=== PATIENT | female | born 1950 | race Caucasian/White ===

== ENCOUNTER 2016-09-01 23:39 | Inpatient (IN) | payer MEDICARE, OTHER ==
[2016-09-01] MEDS ORDERED: LACTATED RINGERS 1,000 ML ONE (23:56)
[2016-09-02 00:15] LABS: ABSOLUTE NEUTROPHIL COUNT 7.9 K/mm3 (1.8-7.7); BASO % 0.4 % (0.2-1.0); EOS # 0.2 (0.0-0.5); EOS % 1.5 % (0.9-2.9); HEMATOCRIT 47.1 % (37.0-47.0); IMM NEUT% 0.3 % (0-1); LYMPH % 18.5 % (15-45); MEAN CELL VOLUME 90.4 fl (81.0-99.0); MEAN CORPUSCULAR HEMOGLOBIN 28.8 pg (27.0-31.0); MEAN CORPUSCULAR HGB CONC 31.8 g/dl (33.0-37.0); MEAN PLATELET VOLUME 9.3 fl (7.4-10.4); MONO # 0.5 (0.0-0.8); MONO % 4.8 % (4-12); NEUT % 74.5 % (43-75); PLATELET COUNT 299 K/mm3 (130-400); RED CELL DISTRIBUTION WIDTH 14.2 % (11.5-14.5)
[2016-09-02] MEDS ORDERED: ONDANSETRON 4 MG/2ML 2 ML VIAL ONE ×2 (00:18→02:45)
[2016-09-02] MEDS ORDERED: FENTANYL 100 MCG/2 ML VIAL ONE (00:18)
[2016-09-02 00:29] LABS: ALB/GLOB RATIO 1.5 (>1.0); ALBUMIN 4.3 gm/dL (3.5-5.7); CALCIUM 10.2 mg/dL (8.6-10.3)
[2016-09-02 01:59] LABS: URINE BILIRUBIN NEGATIVE (NEGATIVE); URINE BLOOD 1+ (NEGATIVE); URINE GLUCOSE (UA) NEGATIVE (NEGATIVE); URINE LEUKOCYTE ESTERASE NEGATIVE (NEGATIVE); URINE NITRITE NEGATIVE (NEGATIVE); URINE PROTEIN 2+ (NEGATIVE); URINE UROBILINOGEN NORMAL (0-1 mg/dl)
[2016-09-02 02:01] LABS: URINE APPEARANCE CLEAR; URINE COLOR YELLOW
[2016-09-02 02:07] LABS: URINE BACTERIA 0
[2016-09-02] MEDS ORDERED: BLISTEX LIPSTICK 1 EACH TP PRN (02:55)
[2016-09-02] MEDS ORDERED: BISACODYL 5 MG TABLET.EC PO PRN (02:55)
[2016-09-02] MEDS ORDERED: PROMETHAZINE HCL 25 MG in SODIUM CHLORIDE 0.9% 50 ML IV PRN (02:55)
[2016-09-02] MEDS ORDERED: PROCHLORPERAZINE 5 MG/ML 2 ML VIAL IV PRN (02:55)
[2016-09-02] MEDS ORDERED: MENTHOL/CETYLPYRD 1 EACH LOZENGE PO PRN (02:55)
[2016-09-02] MEDS ORDERED: MAGNESIUM HYDROXIDE 30 ML UDCUP PO PRN (02:55)
[2016-09-02] MEDS ORDERED: HYDROMORPHONE HCL 2 MG/ML SYRINGE IV PRN (02:55)
[2016-09-02] MEDS ORDERED: ACETAMINOPHEN 650 MG SUP PR PRN (02:55)
[2016-09-02] MEDS ORDERED: BISACODYL 10 MG SUP PR PRN (02:55)
[2016-09-02] MEDS ORDERED: SODIUM CHLORIDE 0.9% 100 ML IV PRN (02:55)
[2016-09-02 02:57] VITALS: BMI 39.4
[2016-09-02] MEDS ORDERED: HYDROMORPHONE HCL 1 MG/ML SYRINGE IV PRN (03:07)
[2016-09-02] MEDS ORDERED: HYDROMORPHONE HCL 0.5 MG/0.5 ML SYRINGE IV PRN (03:09)
[2016-09-02] MEDS ORDERED: PUMP TUBING ONE (03:29)
[2016-09-02] MEDS: D5 1/2NS with 20 mEq KCL 1,000 ML IV SCH ×3 (03:33→20:16)
--- NOTE | 2016-09-02 08:19 | CT ---
Exam Type: ABD/PELVIS W/O CON Date and Time: 09/02/2016 12:54 AM Clinical information: Nausea and vomiting with abdominal pain. History of small bowel obstruction and liver cancer. Comparison: None Procedure: Imaging device: [employer] Aquilion [address] scanner 1 mm axial images were obtained through the abdomen and pelvis. Stacked reconstructed 3, 4 and 5 mm images were photographed in the axial coronal and sagittal planes. No oral contrast was utilized for this examination. Exam: Without intravenous contrast. FINDINGS: Lung bases: Linear bibasilar atelectasis or scarring is evident. Liver: There are multiple low-attenuation foci observed. Within the superior right lobe, there are smaller low-attenuation foci, one of which demonstrates Hounsfield attenuation value of 6 Hounsfield units. This may reflect small hepatic cysts. However, there are also heterogeneous mass is seen within both the left and right hepatic lobes. The left lobe hepatic mass measures approximately 5.1 x 6.5 cm, the right hepatic mass seen on image 34 measures 4.8 x 3.2 cm. This likely reflects the patient's known hepatic carcinoma. Spleen: The spleen is homogeneous and does not appear to be enlarged. Gallbladder: Surgically absent. Pancreas: Normal without enlargement or evidence of adjacent inflammatory changes. Adrenal glands: Normal without enlargement or evidence of adjacent inflammatory changes. Abdominal aorta: The aorta is of normal caliber and appears to be without significant atherosclerotic disease. Kidneys: There is a low-attenuation focus involving the superior portion of the right kidney which may reflect a renal cyst. No evidence of hydronephrosis is seen. Bowel structures: Suture material is evident involving the proximal colon suggesting partial resection. A few mildly prominent centrally located small bowel loops are seen adjacent to a prior anterior abdominal wall ventral hernia repair with a few small bowel loops extending into the region of the umbilicus. The distal small bowel loops and visualized colon are not dilated. No free fluid or free air is visualized. Appendix: Appears surgically absent. Bladder: The bladder is of normal contour. No wall thickening or significant distention is observed. Hernia: No abdominal wall or inguinal hernia is visualized on this examination. Adenopathy: There is a soft tissue density to the left aspect of the aorta on image 53 measuring 2 cm in size. A soft tissue density is also seen within the subcutaneous tissues of the left posterior flank on image 56. This may reflect an injection granuloma. Osseous structures: A thoracolumbar scoliotic deformity is suggested with associated degenerative changes. Multiple subtle mixed lytic and blastic foci are identified raising concern for osseous metastatic disease. Pelvic structures: There appears to be anterior uterine calcifications likely reflecting a calcified uterine fibroid. IMPRESSION: 1. Large subtle masses within the left and right hepatic lobes, likely reflecting the patient's known hepatic neoplastic process, either primary or metastatic. Other additional hepatic low-attenuation foci evident appearance possibly reflecting hepatic cysts as well. 2. Suggested partial resection of the proximal colon with likely surgical absence of the appendix. No current findings of obstruction are observed. 3. Mildly prominent small bowel loops within the central abdomen adjacent to a prior anterior abdominal wall ventral hernia repair with a few of the small bowel loops extending into the region of the umbilicus. A partial small bowel obstruction cannot be excluded. No free fluid or free air is visualized. 4. A 2 cm suspected enlarged lymph node within a left periaortic location. 5. A 2.1 cm soft tissue density within the subcutaneous tissues of the left flank which may reflect an injection granuloma 6. A probable superior pole right renal cyst. 7. Prior cholecystectomy. 8. Scattered osseous mixed lytic and blastic foci involving the thoracic and lumbar spine which may reflect osseous metastatic disease. Consideration may be given to a nuclear medicine bone scan for further evaluation. 9. Probable calcified uterine fibroids. 10. A thoracolumbar scoliotic deformity with associated degenerative changes. The findings were called to the emergency room at 0201 hours, 09/02/2016, by [facility] radiology.
[2016-09-02] MEDS ORDERED: WATER FOR IRRIG,STERILE 500 ML BOT ONE (08:41)
[2016-09-02] MEDS: PANTOPRAZOLE SODIUM 40 MG VIAL IV SCH (08:50)
--- NOTE | 2016-09-02 08:53 | RAD ---
ABDOMEN ONE VIEW HISTORY: Follow-up small bowel obstruction. Check NG tube placement. Upright abdominal radiograph acquired. COMPARISON: CT examination from 09/02/2016. FINDINGS: BOWEL GAS PATTERN: No small bowel dilatation noted. FREE AIR: None identified. POSTPROCEDURAL CHANGE: Status post cholecystectomy. Right hemipelvic surgical clips again seen. Gastric tubing identified tip projecting just above the expected region of the gastroesophageal junction, advancement recommended. ABDOMINOPELVIC CALCIFICATIONS: Coarse calcifications of the pelvis compatible with leiomyoma and phlebolith formation. OSSEOUS STRUCTURES: Sigmoid thoracolumbar scoliosis. Lower lumbar facet degeneration. IMPRESSION: 1. Nonobstructive bowel gas pattern. No free air. 2. Gastric tubing terminates above the diaphragm, advancement recommended. 3. Status post cholecystectomy. 4. Thoracolumbar scoliosis. Findings discussed with Dr. Jessica of the hospitalist clinical service on 09/02/2016 at 0849 hours.
[2016-09-02] MEDS: DOCUSATE SODIUM 100 MG CAPSULE PO SCH ×2 (09:16→23:48)
[2016-09-02] MEDS: ONDANSETRON 4 MG/2ML 2 ML VIAL IV PRN ×2 (10:33→17:56)
[2016-09-02] MEDS ORDERED: PROMETHAZINE HCL 6.25 MG in SODIUM CHLORIDE 0.9% 50 ML IV PRN (11:16)
--- NOTE | 2016-09-02 12:18 | HP ---
Sydni Lagunas [id number] DATE OF ADMISSION: 09/02/2016 CHIEF COMPLAINT: Nausea and vomiting with abdominal pain. 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 Emergency Department with complaints of generalized abdominal pain beginning yesterday afternoon after lunch. She reports the pain radiated to the back and her symptoms of nausea and discomfort progressed such that she sought emergency medical attention and was evaluated in our emergency department just before midnight. Workup in the emergency department showed CT evidence of early or partial small bowel obstruction. A nasogastric tube was placed in the emergency department. She had improvement in her abdominal pain overnight. She reports two episodes of vomiting with emesis last night. Her last bowel movement was yesterday morning prior to the onset of the discomfort. Her symptoms feel similar to a prior bowel obstruction which resolved conservatively. REVIEW OF SYSTEMS: Negative for any documented fever or upper respiratory infection symptoms. No cough, dyspnea, wheezing, chest pain, shortness of breath, or palpitations. She denies any problems with lower extremity edema or orthopnea. She has had no hematemesis, no hematochezia. No new arthralgias, but she does have some chronic pain treated with hydrocodone. She denies any headaches, fainting, blackouts or seizures. No urinary complaints. Review of systems is otherwise negative. PAST MEDICAL HISTORY: Significant for chronic stage III kidney disease. She is followed by [facility] in [facility]. She had a kidney biopsy last April showing focal segmental glomerulosclerosis and she has a history of some chronic proteinuria. Her creatinine has generally been around 1.7. She has a history of chronic essential hypertension which has been well controlled with medication. She has had a history of gout for the last decade also controlled with medicine. She has had a history of a carcinoid tumor involving the abdomen and liver, followed by Dr. Limon currently on Octreotide therapy with good response. She has a osteoarthritis which is generalized. She has obesity essentially in the morbid range which complicates her care. She denies any history of any chronic lung disease or heart disease. She had a hospitalization in 2010 for small bowel obstruction which resolved without surgery. PAST SURGICAL HISTORY: Significant for laparoscopic cholecystectomy years ago. She had an appendectomy in the year 1999. She had a kidney biopsy in April 2016. She had the abdominal mass resected and had an oophorectomy in 2012 and she had a left subtotal thyroidectomy in June 2013 for a multinodular goiter. ALLERGIES: REPORTED TO CODEINE WHICH MAINLY CAUSED NAUSEA AND VOMITING. CURRENT MEDICATIONS: Include: 1. Octreotide 10 mg intramuscularly once a month. 2. Allopurinol 200 mg daily. 3. Lisinopril 10 mg daily. 4. Vitamin D3 50,000 units once a week. 5. Vicodin 1 to 2 tablets every 4 hours as needed for pain. FAMILY HISTORY: Significant for a daughter with lupus. Father had hypertension and diabetes. SOCIAL HISTORY: Patient is . She denies any history of tobacco, alcohol, or illicit drug use. She has two sons and one daughter. She lives with her 's brother and his and she is . Her primary care provider is Dr. Mccarthy. PHYSICAL EXAMINATION: VITAL SIGNS: Show a temperature of 98.5, pulse 71, blood pressure 142/90, respirations 20, oxygen saturation are 97% on room air, body mass index is 39.5, weight is 101.2 kg. GENERAL: This is an obese female in no acute distress. HEENT: Shows a nasogastric tube in place. Moist pink oral mucosa. NECK: Nontender with no adenopathy. LUNGS: Clear to auscultation bilaterally. CARDIOVASCULAR: Reveals a regular rate and rhythm without a murmur. ABDOMEN: Obese, soft, nontender, nondistended with hypoactive bowel sounds. PELVIC: Deferred. RECTAL: Deferred. EXTREMITIES: Show no peripheral edema. NEUROLOGIC: Nonfocal. She is alert and oriented x3. SKIN: Warm, dry, and intact. LABORATORY: CBC shows a white count of 10.6, hemoglobin of 15.0, platelet count of 299,000. Lactate is normal at 1.1. Chemistry profile shows a sodium of 139, potassium 4.2, carbon dioxide 21, BUN 27, creatinine 1.7, glucose 149. Liver function tests are normal. Lipase is 58. Urinalysis shows 1+ blood, 2+ protein, 3 to 5 red cells, 1 to 3 white cells, 0 bacteria. DIAGNOSTICS: CT of the abdomen and pelvis, official report is pending, reportedly showed evidence of a partial small bowel obstruction, await the final report. ASSESSMENT: The patient has a partial small bowel obstruction with nausea, vomiting, generalized abdominal pain. She has had an nasogastric tube placed in the emergency department, but it looks like there is no output. I will check a KUB to confirm placement and if it is adequately placed consider removal. We will continue bowel rest, IV fluids, and conservative management. Await return of her bowel function. She has chronic stage III kidney disease which appears to be stable. She has history of carcinoid tumor of the abdomen and liver, it is unclear what role this is playing in her obstruction, but appears to be stable. She has chronic essential hypertension with adequate control at this point. She ahs morbid obesity which complicates her care. She is anticipated to be in the hospital for 48 to 72 hours. Venous thromboembolism prophylaxis is indicated as her risk is moderate and mechanical measures are being used because of concern she may need surgery. Further treatment and recommendations will depend on her hospital course. JOB: [id number] CC: Dr. Fabio Limon
[2016-09-03] MEDS: D5 1/2NS with 20 mEq KCL 1,000 ML IV SCH ×2 (04:10→10:05)
[2016-09-03 06:14] LABS: HEMATOCRIT 38.2 % (37.0-47.0); HEMOGLOBIN 11.8 gm/l (12.0-16.0); MEAN CELL VOLUME 93.4 fl (81.0-99.0); MEAN CORPUSCULAR HEMOGLOBIN 28.9 pg (27.0-31.0); MEAN CORPUSCULAR HGB CONC 30.9 g/dl (33.0-37.0)
[2016-09-03 06:43] LABS: CALCIUM 8.7 mg/dL (8.6-10.3)
[2016-09-03] MEDS: DOCUSATE SODIUM 100 MG CAPSULE PO SCH (10:03)
[2016-09-03] MEDS: PANTOPRAZOLE SODIUM 40 MG VIAL IV SCH (10:03)
[2016-09-03] MEDS ORDERED: BISACODYL 5 MG TABLET.EC PO ONE (11:16)
--- NOTE | 2016-09-03 11:40 | PDOC43 ---
- Subjective Chief Complaint: Abd pain and N/V Subjective: Denies Abdominal Pain, Denies Vomiting, Denies Fever - Objective Vital Signs Temperature 98.2 F 09/03/16 07:45 Pulse Rate 70 09/03/16 07:45 Respiratory Rate 20 09/03/16 07:45 Blood Pressure 155/101 09/03/16 07:45 O2 Saturation by Pulse Oximetry 95 09/03/16 07:45 Oxygen Delivery Method Room Air Oxygen Flow Rate 0 Intake and Output 09/02/16 09/03/16 09/04/16 06:59 06:59 06:59 Intake Total 1000 2809 Output Total 250 1200 Balance 750 1609 Tubes/Drains Output: Tubes and Drains Output NG/OG Output 100 NG/OG Output 100 General: Alert, Oriented x3, Cooperative, No Acute Distress HEENT: Mucous membr. moist/pink Lungs: Clear to Auscultation Bilaterally Cardiovascular: Regular Rate and Rhythm Abdomen: Soft, Normal Bowel Sounds, Non-Distended, No Tenderness Extremities: No Edema Laboratory 09/03/16 05:30 09/03/16 05:30 09/03/16 05:30 RBC 4.09 L MCHC 30.9 L Estimated GFR 30 L Current Medications: Current meds reviewed in EMR. - Problems: Assessment/Plan (1) Small bowel obstruction, partial Status: AcuteAssessment/Plan: Suspect due to adhesions. Appears to be improving with bowel rest, reports Flatus, NGT removed this am and advancing to clears (2) CKD (chronic kidney disease) stage 3, GFR 30-59 ml/min Status: AcuteAssessment/Plan: Due to focal segmental glomerulosclerosis Cr stable at 1.7 (3) Hypertension Qualifiers: Hypertension type: essential hypertension Qualifier Code: (I10) Essential (primary) hypertension Status: AcuteAssessment/Plan: possibly secondary to CKD (4) Morbid obesity with BMI of 45.0-49.9, adult Status: AcuteAssessment/Plan: complicates care (5) Carcinoid tumor, malignant Status: AcuteAssessment/Plan: involving liver and peritoneal cavity in remission on octreotide VTE Prophylaxis: mechanical measures Disposition: home once she has a BM
[2016-09-03] MEDS: ACETAMINOPHEN 325 MG TABLET PO PRN ×2 (14:24→14:26)
[2016-09-03 19:43] VITALS: BP 162/104
--- NOTE | 2016-09-04 06:28 | DS ---
Sydni Lagunas [id number] DATE OF ADMISSION: 09/02/2016 DATE OF DISCHARGE: 09/03/2016 DISCHARGE DIAGNOSES: 1. Partial small bowel obstruction. 2. Nausea. 3. Vomiting. 4. Generalized abdominal pain. 5. Chronic stage III kidney disease. 6. History of carcinoid tumor involving the peritoneal cavity and liver. 7. Chronic essential hypertension. 8. Obesity. TO SUMMARIZE THE ADMISSION AND HOSPITAL COURSE: The patient is a 65-year-old female who presented to [facility] Emergency Department with complaints of generalized abdominal pain, nausea, and vomiting beginning September 01 after lunch. Her symptoms had persisted prompting her to seek medical attention in the emergency department where a CT of the abdomen and pelvis showed evidence of a partial small bowel obstruction. She was referred to the hospitalist service for admission. Nasogastric tube was placed for decompression of the stomach. She had the nasogastric tube in overnight, it was then removed. Diet was slowly advanced. She had passage of a bowel movement on the evening of September 02 and resolution of her obstructive symptoms. She was felt to be medically stable for discharge. PHYSICAL EXAMINATION: VITALS: At discharge showed a temperature of 97.5, pulse 70, her blood pressure was 138/101, respirations 18, oxygen saturation 97% on room air. Body mass index 45, weight 116.3 kg. GENERAL: This is an obese female in no acute distress. HEENT: Unremarkable. LUNGS: Clear to auscultation bilaterally. CARDIOVASCULAR: Reveals a regular rate and rhythm without a murmur. ABDOMEN: Soft, nontender, nondistended with positive bowel sounds. EXTREMITIES: Showed no peripheral edema. LABORATORY STUDIES: On the day of discharged showed a sodium of 140, potassium 4.3, BUN 15, creatinine 1.7. CBC showed a white count of 6.5, hemoglobin 11.8, and a platelet count of 202,000. DISPOSITION: Home. DISCHARGE CONDITION: Good. DISCHARGE DIET: Regular diet. ALLERGIES: DOCUMENTED TO CODEINE. DISCHARGE MEDICATIONS: She will continue: 1. Octreotide injections once a month per Dr. Limon I believe it is 10 mg every month. 2. Allopurinol 200 mg every morning. 3. Lisinopril 10 mg daily. 4. Vitamin D3 50,000 units once a week. 5. Vicodin 5/325 one to two every 4 hours as needed for pain. FOLLOW UP: She will follow up with her primary care provider, Dr. Mccarthy as needed. JOB: [id number] CC: Dr. Mccarthy
== END 2016-09-03 19:35 | disposition home or self-care (01) | DRG 390 ==
LOC: ED 23:39 → MS 09-02 02:18
PROVIDERS: ADMIT Family Medicine; ATTEND Family Medicine
DX: K56.60 Unspecified intestinal obstruction (principal); I12.9 Hypertensive chronic kidney disease with stage 1 through stage 4 chronic kidney disease, or unspecified chronic kidney disease; N18.3 Chronic kidney disease, stage 3 (moderate); E66.01 Morbid (severe) obesity due to excess calories